=== PATIENT | female | born 1985 | race Hispanic/Latino ===

== ENCOUNTER 2018-12-20 06:07 | Inpatient (IN) | payer OTHER ==
[~2018-12-20] VITALS: Ht 160 cm; Wt 59.0 kg
[2018-12-23] MEDS ORDERED: LACTATED RINGERS 1000ML 1,000 ML IV PRN (11:52)
[2018-12-23 11:54] LABS: HEMATOCRIT 37.9 % (36-48); MEAN CORPUSCULAR HEMOGLOBIN 30.7 pg (27.0-33.0); MEAN CORPUSCULAR HGB CONC 34.5 g/dL (32.0-36.0); MEAN CORPUSCULAR VOLUME 88.9 fL (79-99); PLATELET COUNT (AUTO) 243 K/uL (130-400); RED BLOOD CELL COUNT(AUTO) 4.26 MIL/uL (4.00-5.50); WHITE BLOOD COUNT (AUTO) 25.1 K/uL (4.8-10.8)
[2018-12-23] MEDS ORDERED: LACTATED RINGERS 1000ML 2,000 ML IV ONE (11:58)
[2018-12-23] MEDS ORDERED: AMPICILLIN 2GM+NS 100ML 100 ML IV ONE (11:58)
[2018-12-23] MEDS ORDERED: NALOXONE HCL 0.4 MG/1 ML ML IV PRN (12:00)
[2018-12-23] MEDS ORDERED: LACTATED RINGERS 500 ML 500 ML IV PRN (12:00)
[2018-12-23] MEDS ORDERED: AMPICILLIN 2GM+NS 100ML 100 ML IV SCH (12:00)
[2018-12-23] MEDS ORDERED: EPHEDRINE SULFATE 50 MG/ML AMPULE IVP PRN (12:00)
[2018-12-23] MEDS ORDERED: ROPIVACAINE 0.2% 100ML VIAL 100 ML EP SCH (12:00)
[2018-12-23] MEDS ORDERED: OXYTOCIN-LR 20 UNITS/1000 ML 1,000 ML IV ONE (12:09)
[2018-12-23] MEDS ORDERED: OXYTOCIN 10 USP UNITS/ML 20 UNIT in LACTATED RINGERS 1000ML 1,000 ML IV SCH (12:15)
[2018-12-23] MEDS ORDERED: OXYTOCIN-LR 20 UNITS/1000 ML 1,000 ML IV SCH (12:15)
[2018-12-23] MEDS ORDERED: LIDOCAINE HCL 1% 20 ML VIAL ONE (12:43)
[2018-12-23] MEDS ORDERED: ACETAMINOPHEN-CODEINE 300/30MG TAB PO PRN (13:15)
[2018-12-23] MEDS ORDERED: MEASLES/MUMPS/RUBELLA VACCINE, LIVE 0.5 ML/VIAL SQ PRN (13:15)
[2018-12-23] MEDS ORDERED: LANOLIN 30GM OINTMENT TP PRN (13:15)
[2018-12-23] MEDS ORDERED: WITCH HAZEL 1 PAD TP PRN (13:15)
[2018-12-23] MEDS ORDERED: ACETAMINOPHEN 325 MG TAB PO PRN (13:15)
[2018-12-23] MEDS ORDERED: DIPH,PERTUSS(ACELL),TET VAC/PF 0.5 ML VIAL IM PRN (13:15)
[2018-12-23] MEDS ORDERED: BENZOCAINE/LANOLIN/ALOE VERA 60 ML AEROSOL TP PRN (13:15)
[2018-12-23 15:29] VITALS: BP 116/68
[2018-12-23] MEDS ORDERED: PREN1COM14 PO (15:38)
[2018-12-23] MEDS: IBUPROFEN 600 MG TABLET PO PRN (15:51)
--- NOTE | 2018-12-23 16:50 | NUR ---
ACTIVITY PT AMBULATED TO BATHROOM, STEADY GAIT, WAS ABLE TO VOID, DID OWN DEMETRI CARE, AMBULATED BACK TO BED, PAIN HAS DECREASED AFTER VOIDING TWICE ALREADY
[2018-12-23 19:22] VITALS: BP 108/72
[2018-12-23] MEDS: DOCUSATE SODIUM 100 MG CAP PO SCH (20:45)
[2018-12-23] MEDS: HYDROCORTISONE 25 MG SUPPOSITORY PR PRN (21:29)
[2018-12-23 23:30] VITALS: BP 93/57
[2018-12-24] MEDS: IBUPROFEN 600 MG TABLET PO PRN ×3 (00:30→18:22)
[2018-12-24 03:42] VITALS: BP 125/75
[2018-12-24] MEDS: AMPICILLIN 1GM+NS 50ML 50 ML IV SCH ×3 (04:00→20:00)
[2018-12-24 06:10] LABS: HEPATITIS Bs ANTIGEN SCREEN P Negative (Negative)
[2018-12-24 07:50] VITALS: BP 95/55
[2018-12-24] MEDS: HYDROCORTISONE 25 MG SUPPOSITORY PR PRN ×2 (07:55→20:58)
[2018-12-24] MEDS: DOCUSATE SODIUM 100 MG CAP PO SCH ×2 (08:02→20:58)
[2018-12-24 12:18] VITALS: BP 112/67
[2018-12-24 16:00] VITALS: BP 110/70
[2018-12-24 19:28] VITALS: BP 101/60
[2018-12-24 23:24] VITALS: BP 103/62
[2018-12-25] MEDS: IBUPROFEN 600 MG TABLET PO PRN ×2 (00:23→08:56)
[2018-12-25 03:23] VITALS: BP 115/72
[2018-12-25] MEDS: AMPICILLIN 1GM+NS 50ML 50 ML IV SCH ×2 (04:00)
[2018-12-25 07:17] VITALS: BP 137/68
[2018-12-25] MEDS: DOCUSATE SODIUM 100 MG CAP PO SCH (08:54)
--- NOTE | 2018-12-25 11:00 | NUR ---
DR. LAW ROUNDED AND PATIENT HAD DISCHARGE ORDER FROM PREVIOUS DAY TO BE DISCHARGE WHEN BABY IS DISCHARGE. PATIENT IS STABLE AND DENIES ANY PROBLEMS.
[2018-12-25] MEDS: HYDROCORTISONE 25 MG SUPPOSITORY PR PRN (11:11)
--- NOTE | 2018-12-25 11:15 | NUR ---
DISCHARGE INSTRUCTIONS GIVEN AND SCRIPT FOR HOME PAIN MANAGEMENT GIVEN TO PATIENT. VERBALIZED UNDERSTANDING DOSAGE AND FREQUENCY OF HOME MEDS.
[2018-12-25 11:33] VITALS: BP 115/72
--- NOTE | 2018-12-25 11:45 | NUR ---
BILL LOWRYAGER IN TO SEE PATIENT AND CLEARED PATIENT FOR DISCHARGE. PATIENT STABLE AND BONDING VERY WELL WITH .
--- NOTE | 2018-12-25 13:35 | NUR ---
cm note met with patient and states resides at home with spouse, [facility] she has a hx of depression in the past with 1st , but states has been doing well this throughout . with no issues with feeling depressed. feels very supported by spouse and her parents. They will provide assistance at home with baby. Informed her to report any changes in mood or behavior or feelings of depressions to her MD and followup at [facility] office. also informed pt of resources available for depression. pt verbalizes understanding updated primary nurse Lana.and nursery nurse Michelle.
--- NOTE | 2018-12-25 16:00 | NUR ---
PATIENT WAS TAKEN VIA W/C CARRYING BABY IN ARMS TO FAMILY VEHICLE. PATIENT DISCHARGED TO HER SPOUSE IN STABLE CONDITION. PATIENT LOOKS HAPPY AND HAS BEEN BONDING VERY WELL WITH BABY.
== END 2018-12-25 16:00 | disposition home or self-care (01) | DRG 807 ==
LOC: OBSVTOIN 12-23 11:39 → LDH 12-23 11:39 → WSH 12-23 15:29
PROVIDERS: ADMIT Obstetrics & Gynecology; ATTEND Obstetrics & Gynecology
PROC: 10E0XZZ Delivery of Products of Conception, External Approach (ICD-10-PCS; principal; 2018-12-23)
PROC: 10907ZC Drainage of Amniotic Fluid, Therapeutic from Products of Conception, Via Natural or Artificial Opening (ICD-10-PCS; 2018-12-23)
PROC: 3E0234Z Introduction of Serum, Toxoid and Vaccine into Muscle, Percutaneous Approach (ICD-10-PCS; 2018-12-23)
PROC: 3E02340 Introduction of Influenza Vaccine into Muscle, Percutaneous Approach (ICD-10-PCS; 2018-12-23)
PROC: 3E0234Z Introduction of Serum, Toxoid and Vaccine into Muscle, Percutaneous Approach (ICD-10-PCS; 2018-12-23)
DX: O69.81X0 Labor and delivery complicated by cord around neck, without compression, not applicable or unspecified (principal); Z37.0 Single live birth; O99.824 Streptococcus B carrier state complicating childbirth; Z3A.40 40 weeks gestation of pregnancy; Z23 Encounter for immunization
CPT/HCPCS: 36415; 83033; 85027; 86592; 86850; 86900; 86901; 87340; 90715; G0378; J0290; J2590; J2791; J7120

== ENCOUNTER 2020-04-28 09:48 | Inpatient (IN) | payer OTHER ==
[~2020-04-28] VITALS: Ht 154.9 cm; Wt 54.4 kg
[~2020-04-28 09:48] MED LIST: PREN1COM14 PO
[2020-04-28] MEDS ORDERED: OXYTOCIN-LR 20 UNITS/1000 ML 1,000 ML IV ONE (09:58)
[2020-04-28 10:24] LABS: HEMATOCRIT 37.8 % (36-48); MEAN CORPUSCULAR HEMOGLOBIN 30.4 pg (27.0-33.0); MEAN CORPUSCULAR HGB CONC 34.1 g/dL (32.0-36.0); MEAN CORPUSCULAR VOLUME 88.9 fL (79-99); RED BLOOD CELL COUNT(AUTO) 4.25 MIL/uL (4.00-5.50); RED CELL DISTRIBUTION WIDTH 13.1 % (11.0-15.5); WHITE BLOOD COUNT (AUTO) 14.9 K/uL (4.8-10.8)
[2020-04-28 10:25] LABS: APPEARANCE,URINE Clear (CLEAR); BILIRUBIN,URINE Negative (NEGATIVE); COLOR,URINE Yellow (YELLOW); GLUCOSE, URINE (UA) Negative (NEGATIVE); KETONES,URINE Negative (NEGATIVE); LEUKOCYTE ESTERASE ,URINE Negative (NEGATIVE); NITRATE,URINE Negative (NEGATIVE); OCCULT BLOOD,URINE Moderate (NEGATIVE); PROTEIN,URINE Negative (NEGATIVE); UROBILINOGEN,URINE 0.2 mg/dL (0.2-1.0)
[2020-04-28 10:32] LABS: AMPHET/METH SCREEN,URINE NEGATIVE (NEGATIVE); BARBITURATE SCREEN, URINE NEGATIVE (NEGATIVE); BENZODIAZEPINES SCREEN,URINE NEGATIVE (NEGATIVE); CANNABINOID SCREEN,URINE NEGATIVE (NEGATIVE); COCAINE SCREEN,URINE NEGATIVE (NEGATIVE); OPIATE SCREEN,URINE NEGATIVE (NEGATIVE); PHENCYCLIDINE SCREEN,URINE NEGATIVE (NEGATIVE)
[2020-04-28 10:54] LABS: BACTERIA,URINE None Seen /HPF (None Seen); RBC,URINE 0-1 /HPF (0-1); SQUAMOUS EPITHELIAL CELL,UR Rare /HPF (0-2); WBC,URINE None Seen /HPF (0-1)
[2020-04-28 12:02] LABS: CREATININE 0.6 mg/dL (0.5-1.5)
[2020-04-28 12:06] LABS: ALBUMIN 2.3 g/dL (3.5-5.0); BILIRUBIN,TOTAL 0.2 mg/dL (0.2-1.0); TOTAL PROTEIN, SERUM 5.5 g/dL (6.0-8.3)
[2020-04-28] MEDS ORDERED: ACETAMINOPHEN-CODEINE 300/30MG TAB PO PRN (12:30)
[2020-04-28] MEDS ORDERED: DIPH,PERTUSS(ACELL),TET VAC/PF 0.5 ML VIAL IM PRN (12:30)
[2020-04-28] MEDS ORDERED: WITCH HAZEL 1 PAD TP PRN (12:30)
[2020-04-28] MEDS ORDERED: BENZOCAINE/LANOLIN/ALOE VERA 60 ML AEROSOL TP PRN (12:30)
[2020-04-28] MEDS ORDERED: LANOLIN 30GM OINTMENT TP PRN (12:30)
[2020-04-28] MEDS ORDERED: MEASLES/MUMPS/RUBELLA VACCINE, LIVE 0.5 ML/VIAL SQ PRN (12:30)
[2020-04-28] MEDS ORDERED: ACETAMINOPHEN 325 MG TAB PO PRN (12:30)
[2020-04-28 12:50] VITALS: BP 127/88
[2020-04-28] MEDS ORDERED: LACTATED RINGERS 1000ML 1,000 ML IV PRN (13:00)
[2020-04-28] MEDS: IBUPROFEN 600 MG TABLET PO PRN ×2 (14:13→22:19)
[2020-04-28] MEDS ORDERED: FLU VACC QS2020-21(6MOS UP)/PF 60 MCG/0.5 ML ML IM ONE ×2 (14:15→14:18)
[2020-04-28 15:02] VITALS: BP 122/74
[2020-04-28] MEDS ORDERED: ACET-2123 PO (16:21)
[2020-04-28] MEDS ORDERED: INFLUENZA VACCINE 60 MCG/0.5 ML IM SCH (17:15)
[2020-04-28 20:00] VITALS: BP 129/86
[2020-04-28] MEDS: DOCUSATE SODIUM 100 MG CAP PO SCH (21:03)
[2020-04-28 23:45] VITALS: BP_SYST 118; BP_SYST 141; BP_DIAS 76; BP_DIAS 83
[2020-04-29 04:50] VITALS: BP 140/89
[2020-04-29 06:40] LABS: HEMATOCRIT 31.3 % (36-48); MEAN CORPUSCULAR HEMOGLOBIN 29.8 pg (27.0-33.0); MEAN CORPUSCULAR HGB CONC 32.6 g/dL (32.0-36.0); MEAN CORPUSCULAR VOLUME 91.5 fL (79-99); RED BLOOD CELL COUNT(AUTO) 3.42 MIL/uL (4.00-5.50); RED CELL DISTRIBUTION WIDTH 13.4 % (11.0-15.5); WHITE BLOOD COUNT (AUTO) 6.8 K/uL (4.8-10.8)
[2020-04-29 07:21] VITALS: BP 134/81
[2020-04-29] MEDS: DOCUSATE SODIUM 100 MG CAP PO SCH ×2 (09:23→20:48)
[2020-04-29] MEDS: IBUPROFEN 600 MG TABLET PO PRN ×2 (09:25→16:29)
[2020-04-29 11:39] VITALS: BP 123/81
[2020-04-29 16:15] VITALS: BP 116/73
[2020-04-29 19:50] VITALS: BP 120/87
[2020-04-29 23:31] VITALS: BP 121/76
[2020-04-30 03:04] VITALS: BP 119/78
[2020-04-30 07:25] VITALS: BP 121/69
[2020-04-30] MEDS: DOCUSATE SODIUM 100 MG CAP PO SCH (09:36)
[2020-04-30] MEDS: IBUPROFEN 600 MG TABLET PO PRN (09:36)
[2020-04-30 11:32] VITALS: BP 131/94
[2020-04-30 14:11] LABS: HEPATITIS Bs ANTIGEN SCREEN P Negative (Negative)
== END 2020-04-30 13:25 | disposition home or self-care (01) | DRG 776 ==
LOC: EDH 09:48 → OBSVTOIN 09:49 → LDH 09:49 → WSH 12:45
PROVIDERS: ADMIT Internal Medicine; ATTEND Internal Medicine
PROC: 3E0234Z Introduction of Serum, Toxoid and Vaccine into Muscle, Percutaneous Approach (ICD-10-PCS; principal; 2020-04-28)
PROC: 3E0134Z Introduction of Serum, Toxoid and Vaccine into Subcutaneous Tissue, Percutaneous Approach (ICD-10-PCS; 2020-04-28)
PROC: 3E01340 Introduction of Influenza Vaccine into Subcutaneous Tissue, Percutaneous Approach (ICD-10-PCS; 2020-04-28)
PROC: 3E0334Z Introduction of Serum, Toxoid and Vaccine into Peripheral Vein, Percutaneous Approach (ICD-10-PCS; 2020-04-28)
DX: Z39.0 Encounter for care and examination of mother immediately after delivery (principal); O26.893 Other specified pregnancy related conditions, third trimester; Z3A.39 39 weeks gestation of pregnancy; Z23 Encounter for immunization; Z67.41 Type O blood, Rh negative
CPT/HCPCS: 36415; 80053; 80305; 81001; 83033; 85027; 86592; 86701; 86850; 86900; 86901; 87340; 87390; 90715; 96360; A4351; G0378; J2590; J2791; J7120; Q2035